=== PATIENT | female | born 1975 | race Caucasian/White ===

== ENCOUNTER 2020-02-26 00:01 | Emergency (ER) | payer OTHER ==
[~2020-02-26] VITALS: Ht 170.2 cm; Wt 72.6 kg
--- NOTE | 2020-02-26 00:19 | Emergency Department Note ---
History of Present Illnes History of Present Illness Chief Complaint: General Medicine Complaints History of Present Illness This is a 44 year old female who presents for evaluation of a tear of the right earlobe. Pt states that she was wearing ayde silver hoop earrings this evening, when her dog jumped up on her, catching his paw on the earring. The dog apparently jumped, which caused the earring to pull through the right earlobe. 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 Pt has only applied ice to the earlobe. It is unclear as to when patient's last tetanus shot was, as she stated that, "she didn't need one," and really didn't want to discuss further. Historian: Patient Arrival Mode: Car Automatic Outsole Cutter Required: No Onset (how long ago): hour(s) (2) Location: right ear lobe Quality: throbbing Radiation: Reports non-radiation Severity: moderate Onset quality: sudden Duration (how long): hour(s) (2) Timing of current episode: constant Progression: unchanged Chronicity: new Context: Reports trauma/injury (see HPI) Relieving factors: none Exacerbating factors: none Associated symptoms: Denies fever/chills, Denies nausea/vomiting Treatments prior to arrival: none Past Medical/Family History Physician Review I have reviewed the patient's past medical and family history. Any updates have been documented here. Past Medical History Recent Fever: No Clinical Suspicion of Infectio: No New/Unexplained Change in Ment: No Past Medical History: Cancer (Breast) Other Surgery: Bilateral Mastectomy Social History Smoking Cessation: Never Smoker Counseling Performed: No Alcohol Use: Occasional Any Illegal Drug Use: No TB Exposure/Symptoms: No Physically hurt or threatened: No Other Last Tetanus: unknown Any Pre-Existing Lines (PICC,: No Is patient up to date on immun: No Review of Systems Review of Systems Constitutional: Denies chills, Denies fever EENTM: Reports no symptoms Cardiovascular: Reports no symptoms Respiratory: Reports no symptoms Gastrointestinal: Reports no symptoms Musculoskeletal: Reports no symptoms Integumentary: Reports other (vertical laceration of right earlobe, @ 0.5 mm;) Neurological: Reports no symptoms Review of other systems: All other systems negative Physical Exam Related Data Allergies: Coded Allergies: No Known Allergies (Unverified , 02/26/20) Vital signs reviewed: Yes Physical Exam CONSTITUTIONAL Constitutional: Present well-developed, Present well-nourished HENT HENT: Present normocephalic, Present atraumatic, Present oropharynx clear/moist, Present nose normal HENT L/R: Present left ext ear normal, Present other (0.5 mm vertical lac of the right earlobe, with slight oozing; ) EYES Eyes: Reports PERRL, Reports conjunctivae normal NECK Neck: Present ROM normal PULMONARY CARDIOVASCULAR GASTROINTESTINAL GENITOURINARY SKIN MUSCULOSKELETAL NEUROLOGICAL Neurological: Present alert, Present oriented x 3 PSYCHOLOGICAL Psychological: Present mood/affect normal, Present judgement normal Assessment & Plan Medical Decision Making MDM - Take all antibiotics, as directed. Take with food, if possible. - Contact plastic surgery at your earliest convenience, to schedule an appointment to evaluate repair of the right earlobe. Pt provided with card for Dr. Sahni. - For pain, he may take ibuprofen 200 mg3 tablets together every 6 hours as needed. He may also apply ice to the earlobe, which may also provide some comfort. - After 24 hours, gently clean the right earlobe twice daily with antibacterial soap and water, dry, and then apply a small amount of mqww-[id number] antibiotic ointment such as Triple Antibiotic, bacitracin, or Neosporin, and cover with a Band-Aid. Repeat twice daily, until seen by plastic surgery. - Follow-up immediately, if you develop any redness, swelling, or increased tenderness of the right earlobe or right ear, as these could be signs of infection. - Since your right earlobe laceration was caused by a metal object, it is recommended that you receive a tetanus shot if it is been 10 or more years since your last one. Assessment & Plan Final Impression: (1) Ear lobe laceration Depart Disposition: HOME, SELF-jail Meds Active Scripts Cephalexin (CEPHALEXIN) 500 Mg Capsule, 500 MG PO TID for infection for 7 Days, #21 CAP 0 Refills Prov:GAYE WATTERS MD 02/26/20 GAYE WATTERS MD Feb 26, 2020 00:19
[2020-02-26] MEDS ORDERED: CEPHALEXIN500 MG PO (00:36)
--- OUTSIDE RECORDS SUMMARY | 2020-02-26 06:04 | XMS REPORT | Continuity of Care Document ---
Author Author [facility] t Organization [facility] Address [address] [place] [address] Phone Unavailable Care Team Providers Care Woodworker Name Role Phone FINCHELISEO WILDE PCP Unavailable Karol Hackett MD Attphys Paulo SCHMIDT Attphys Unavailable Paulo Schmidt MD Attphys Ta VASQUEZ ARIEAL Attphys Unavailable Ubaldo SECOND WATCH SERGEANT, Ta Arieal Attphys Brigette Gill Rebekah Attphys Domenic RICHARDS, Mason Attphys [phone] Susana Dyer LAc Attphys [phone] Payers Payer Name Policy Type Policy Number Effective Date Expiration Date Clarence KWOK O POS OPEN ACCESS [id number] 2016 00:00:00 Problems Condition Name Condition Details Condition Category Status Onset Date Resolution Date Last Treatment Date Treating Clinician Comments Source Deformity of breast Deformity of breast Disease Active 2018-05-29 00:00 :00 MD He Stiffness of left shoulder Stiffness of left shoulder Disease Active 2018-04-12 00:00:00 MD He Stiffness of right shoulder Stiffness of right shoulder Disease Active 2018-04-12 00:00:00 MD Tariq spence Menorrhagia Menorrhagia Disease Active 2018-03-29 00:00:00 MD He Uterine leiomyoma Uterine leiomyoma Disease Active 2018-03-29 00:00:00 MD He Adenomyosis Adenomyosis Disease Active 2018-03-29 00:00:00 MD He Acquired absence of bilateral breasts and nipples Acqu ired absence of bilateral breasts and nipples Disease Active 2018-02-13 00:00:00 MD He Infiltrating duct carcinoma of central portion of righ t female breast 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 Family History Family Member Diagnosis Comments Start Date Stop Date Source Natural father Prostate cancer MD Xochilt zapata Maternal grandmother Liver cancer MD He Paternal aunt Breast cancer Tariq son Paternal aunt Ovarian cancer MD John de la torre Paternal uncle Prostate cancer MD Xochilt zapata Social History Social Habit Start Date Stop Date Quantity Comments Source Sex Assigned At MD He Tobacco use and exposure 2018-08-21 00:00:00 2018-08-21 00:00:00 Rachel ruiz used MD He Alcohol intake 2018-08-21 00:00:00 2018-08-21 00:00:00 Current drinker of alcohol (finding) MD He Smoking Status Start Date Stop Date Source Never smoker MD He Medications Ordered Medication Name Filled Medication Name Start Date Stop Da te Current Medication? 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 MD He vitamin B complex capsule 2018-12-23 14:38:48 Yes Take by mouth. MD He cholecalciferol, vitamin D3, (VITAMIN D3) 2,000 units tab ta blet 2018-12-23 14:38:48 Yes 2000U Take 2,000 Units by mouth. MD He milk thistle 175 mg tablet 2018-12-23 14:38:48 Yes 175mg Take 175 mg by mouth daily. MD He Saccharomyces borutdii (FLORASTOR) 250 mg capsule 2018-11 14:38:48 Yes 250mg Take 250 mg by mouth twice daily. MD He fish oil-omega-3 fatty acids 300-1,000 mg capsule 2018-12-23 14:38:48 Yes 2g Take 2 g by mouth daily. MD He UNABLE TO FIND 2018-12-23 14:38:48 Yes 1{t bl} Take 1 tablet by mouth daily. Med Name: Tumeric MD He ascorbic acid, vitamin C, (vitamin C) 1000 mg tablet 2 14:38:48 Yes 1000mg Take 1,000 mg by mouth daily. MD He vitamin E 1,000 units capsule 2018-12-23 14:38:48 Yes 1U Take 1 Units by mouth daily. 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 MD He tamoxifen (NOLVADEX) 20 mg tablet 2018-12-23 00:00:00 2019 00:00:00 No Infiltrating lobular carcinoma of central portion of right femal e breast 20mg Take 1 tablet (20 mg) by mouth daily. 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 MD He Vital Signs Vital Name Observation Time Observation Value Comments Source Systolic blood pressure 2019-06-10 20:28:35 118 mm[Hg] MD He Diastolic blood pressure 2019-06-10 20:28:35 83 mm[Hg] MD He Heart rate 2019-06-10 20:28:35 66 /min MD Potter son Body temperature 2019-06-10 20:28:35 36.78 Loretta MD Danika nazario Respiratory rate 2019-06-10 20:28:35 18 /min MD Danika nazario Body weight 2019-06-10 20:28:35 74.8 kg MD Tariq spence BMI 2019-06-10 20:28:35 27.15 kg/m2 MD Tariq spence Oxygen saturation in Arterial blood by Pulse oximetry 06-09 20:28:35 99 /min MD He Procedures Procedure Date / Time Performed Performing Clinician Sour e VITAMIN D 25 HYDROXY LEVEL 2019-09-18 14:40:00 Ivory Vasquez CANCER ANTIGEN 15-3 2019-09-18 14:40:00 Ivory Vasquez MD COMPREHENSIVE METABOLIC PANEL 2019-09-18 14:40:00 Ivory Vasquez MD COMPLETE BLOOD COUNT W/ DIFFERENTIAL 2019-09-18 14:40:00 Ivory Vasquez MD GLUCOSE LEVEL 2019-09-18 14:40:00 Ivory Vasquez MD ELECTROLYTE PANEL 2019-09-18 14:40:00 Ivory Vasquez MD SERUM CREATININE 2019-09-18 14:40:00 Ivory Vasquez MD .GLOMERULAR FILTRATION RATE 2019-09-18 14:40:00 Ivory Vasquez MD CALCIUM LEVEL TOTAL 2019-09-18 14:40:00 Ivory Vasquez MD ALBUMIN LEVEL 2019-09-18 14:40:00 Ivory Vasquez MD ALKALINE PHOSPHATASE 2019-09-18 14:40:00 Ivory Vasquez MD ALANINE AMINOTRANSFERASE 2019-09-18 14:40:00 Ivory Vasquez MD ASPARTATE AMINOTRANSFERASE 2019-09-18 14:40:00 Ivory Vasquez TOTAL PROTEIN 2019-09-18 14:40:00 Ivory Vasquez MD FRACTIONATED BILIRUBIN 2019-09-18 14:40:00 Ivory Vasquez MD derson Results CBC 2019-09-18 14:40:00 Ivory Vasquez MD MANUAL DIFFERENTIAL 2019-09-18 14:40:00 Ivory Vasquez MD BLOOD UREA NITROGEN 2019-09-18 14:40:00 Ivory Vasquez MD Encounters Start Date/Time End Date/Time [facility] Source 2020-01-16 12:47:45 2020-01-16 14:58:37 Office Visit [facility] [id number] 2019-09-18 12:12:49 2019-09-18 12:21:17 Outpatient [facility], MDA [id number] MD He 2019-09-18 09:32:12 2019-09-18 09:35:46 Outpatient [facility] MDA, MDA [id number] MD He 2018-07-16 00:00:00 2018-07-16 00:00:00 Outpatient [facility], MDA [id number] MD He Results This patient has no known results.
--- OUTSIDE RECORDS SUMMARY | 2020-02-26 06:04 | XMS REPORT | Continuity of Care Document ---
Author Author [facility] t Organization [facility] Address [address] [place] [address] Phone Unavailable Care Team Providers Care Air Surveillance Operator Name Role Phone FINCHELISEO WILDE PCP Unavailable Karol Hackett MD Attphys Paulo SCHMIDT Attphys Unavailable Paulo Schmidt MD Attphys Ta VASQUEZ ARIEAL Attphys Unavailable Ubaldo FORCE ADJUSTMENT SUPERVISOR, Ta Arieal Attphys Brigette Gill Rebekah Attphys Domenic RICHARDS, Mason Attphys [phone] Susana Dyer LAc Attphys [phone] Payers Payer Name Policy Type Policy Number Effective Date Expiration Date Clarence KWOK O POS OPEN ACCESS [id number] 2016 00:00:00 Problems Condition Name Condition Details [...] : Added automatically from request for surgery [id number] MD He Estrogen receptor positive status (ER+) [...] Date/Time End Date/Time Encounter [facility] ID Source 2020-01-16 12:47:45 2020-01-16 14:58:37 Office Visit [facility] [id number] 2019-09-18 12:12:49 2019-09-18 12:21:17 Outpatient [facility], MDA [id number] MD He 2019-09-18 09:32:12 2019-09-18 09:35:46 Outpatient IVORY MAGANA MDA, MDA [id number] MD He 2018-07-16 00:00:00 2018-07-16 00:00:00 Outpatient [facility], MDA [id number] MD He Results This patient has no known results.
== END 2020-02-26 01:00 | disposition home or self-care (01) ==
LOC: FSED 00:15
DX: S01.311A Laceration without foreign body of right ear, initial encounter (principal); W45.8XXA Other foreign body or object entering through skin, initial encounter; Y92.008 Other place in unspecified non-institutional (private) residence as the place of occurrence of the external cause; Z85.3 Personal history of malignant neoplasm of breast
CPT/HCPCS: 99282